=== PATIENT | male | born 1980 | race Caucasian/White ===

== ENCOUNTER 2021-01-16 10:10 | Emergency (ER) | payer OTHER | END 2021-01-16 11:01 | disposition home or self-care (01) | LOC: ER 10:10 | DX: H92.02 Otalgia, left ear (principal) ==

== ENCOUNTER 2022-06-13 15:09 | Emergency (ER) | payer OTHER ==
[~2022-06-13] VITALS: Ht 172.7 cm; Wt 99.8 kg
[~2022-06-13 15:09] MED LIST: AMOCLA875 PO; Amoxicillin500 MG PO
[2022-06-13] MEDS ORDERED: HYDR1TAB94 PO (15:33)
[2022-06-13] MEDS ORDERED: AMOCLA875 PO (15:33)
== END 2022-06-13 15:36 | disposition home or self-care (01) ==
LOC: ER 15:09
DX: K04.7 Periapical abscess without sinus (principal); F84.0 Autistic disorder; Z79.899 Other long term (current) drug therapy
CPT/HCPCS: 99282

== ENCOUNTER 2023-06-06 11:47 | Emergency (ER) | payer OTHER ==
[~2023-06-06] VITALS: Ht 172.7 cm; Wt 99.8 kg
[~2023-06-06 11:47] MED LIST changes: +HYDR1TAB94 PO
[2023-06-06 11:53] VITALS: BP 134/91
[2023-06-06] MEDS ORDERED: Amoxicillin500 MG PO (11:57)
[2023-06-06] MEDS ORDERED: HYDR1TAB94 PO (11:58)
== END 2023-06-06 12:03 | disposition home or self-care (01) ==
LOC: ER 11:47
DX: K04.7 Periapical abscess without sinus (principal)
CPT/HCPCS: 99282; A9270